=== PATIENT | female | born 1970 | race Caucasian/White ===

== ENCOUNTER 2018-06-13 09:56 | Emergency (ER) | payer OTHER ==
[~2018-06-13] VITALS: Ht 152.4 cm; Wt 40.8 kg
[~2018-06-13 09:56] MED LIST: CEFP200 PO; LEVSOD75 PO; Percocet 5-3251 EACH PO; Pyridium200 MG PO; Zofran Odt4 MG SL
[2018-06-13 10:23] LABS: Source, Urine Clean Catch
[2018-06-13 10:29] LABS: Bilirubin, Urine Neg (Neg); Blood, Urine 2+ (Neg); Glucose Qualitative, Urine Neg (Neg); Ketones, Urine Neg (Neg); Leukocyte Esterase, Urine 3+ (Neg); Nitrite, Urine Neg (Neg); Protein, Urine 1+ (Neg); Urobilinogen, Urine NORM (Normal)
[2018-06-13] MEDS ORDERED: CEFP200 PO (10:35)
[2018-06-13] MEDS ORDERED: Norco 5-325 Ta1 EACH PO (10:35)
[2018-06-13] MEDS ORDERED: ONDA4ODT MM (10:35)
[2018-06-13 10:52] LABS: Appearance, Urine Hazy (Clear); Bacteria Few /hpf; Color, Urine Yellow (P-Yellow); Squamous Epithelial Cells Few /hpf (Few); White Blood Cells, Urine 50-100 /hpf (0-5)
== END 2018-06-13 10:51 | disposition home or self-care (01) ==
LOC: ER 09:56
PROVIDERS: Physician Assistant
DX: N39.0 Urinary tract infection, site not specified (principal); Z88.2 Allergy status to sulfonamides; Z88.8 Allergy status to other drugs, medicaments and biological substances; Z79.899 Other long term (current) drug therapy; E03.9 Hypothyroidism, unspecified; F17.210 Nicotine dependence, cigarettes, uncomplicated
CPT/HCPCS: 81001; 87077; 87086; 87186; 99283

== ENCOUNTER → 2018-07-10 | Outpatient (CLI) | payer OTHER ==
[~2018-07-10] MED LIST changes: +Norco 5-325 Ta1 EACH PO; +ONDA4ODT MM
== END ==
LOC: LAB SHORT 14:38 → LAB 14:38
DX: N89.8 Other specified noninflammatory disorders of vagina (principal)
CPT/HCPCS: 87070; 87205

== ENCOUNTER → 2018-08-21 | Outpatient (CLI) | payer OTHER | LOC: LAB UCHC 16:34 → LAB SHORT 16:34 | DX: N89.9 Noninflammatory disorder of vagina, unspecified (principal); R30.0 Dysuria | CPT/HCPCS: 87077; 87086; 87186 ==

== ENCOUNTER → 2018-09-04 | Outpatient (CLI) | payer OTHER ==
[~2018-09-04] MED LIST changes: +ACET325 PO; +CIPR500 PO; +LEVSOD100 PO; -LEVSOD75 PO; +Macrodantin50 MG PO; +VENL37.5ER PO
== END ==
LOC: LAB 15:15 → LAB SHORT 15:15
DX: N89.8 Other specified noninflammatory disorders of vagina (principal); R30.0 Dysuria
CPT/HCPCS: 87086

== ENCOUNTER 2018-09-06 08:41 | Observation (INO) | payer OTHER ==
[~2018-09-06] VITALS: Ht 154.9 cm; Wt 44.9 kg
[~2018-09-06 08:41] MED LIST changes: -ACET325 PO; -CIPR500 PO; -Macrodantin50 MG PO; -VENL37.5ER PO
[2018-09-06 09:12] LABS: BASOPHILS ABSOLUTE AUTO 0.04 K/mm3 (0.00-0.23); BASOPHILS PERCENT AUTO 0 % (0-2); EOSINOPHILS ABSOLUTE AUTO 0.03 K/mm3 (0.00-0.68); EOSINOPHILS PERCENT AUTO 0 % (0-6); Hematocrit 44.8 % (33.0-51.0); Hemoglobin 14.8 g/dL (11.5-16.0); IMMATURE GRAN ABSOLUTE AUTO 0.08 K/mm3 (0.00-0.10); IMMATURE GRAN PERCENT AUTO 0 % (0-1); LYMPHOCYTES ABSOLUTE AUTO 0.51 K/mm3 (0.84-5.20); LYMPHOCYTES PERCENT AUTO 3 % (21-46); MONOCYTES ABSOLUTE AUTO 0.81 K/mm3 (0.16-1.47); MONOCYTES PERCENT AUTO 4 % (4-13); Mean Corpuscular HGB 29.5 pg (26.0-34.0); Mean Corpuscular Volume 89 fL (80-100); Mean Platelet Volume 9.9 fL (9.1-12.4); NEUTROPHILS ABSOLUTE AUTO 19.12 K/mm3 (1.96-9.15); NEUTROPHILS PERCENT AUTO 93 % (41-73); Platelet Count 274 K/mm3 (150-400); RDW Coefficient Variation 11.9 % (11.7-14.2); RDW Standard Deviation 38.8 fL (35.1-46.3); Red Blood Cell Count 5.01 M/mm3 (3.80-5.20); White Blood Cell Count 20.59 K/mm3 (4.00-11.30)
[2018-09-06 09:33] LABS: Alanine Aminotransfer (ALT/SGP 59 U/L (12-78); Albumin, Blood 4.2 g/dL (3.4-5.0); Alk Phos 94 U/L (50-136); Anion Gap 12 mmol/L (6-16); Aspartate Aminotrans (AST/SGOT 47 U/L (12-37); Bilirubin, Total 0.9 mg/dL (0.1-1.0); Blood Urea Nitrogen 21 mg/dL (8-24); Bun/Creatinine Ratio 38.7 (12.0-20.0); CO2, Blood 19 mmol/L (21-32); Calcium, Blood 9.9 mg/dL (8.5-10.1); Chloride, Blood 105 mmol/L (98-108); Creatinine, Blood 0.54 mg/dL (0.40-1.00); Globulin, Blood 4.1 g/dL (2.2-4.0); Glomerular Filtration Rate >60 (60-); Glucose, Blood 178 mg/dL (70-99); Potassium, Blood 4.1 mmol/L (3.5-5.5); Sodium, Blood 136 mmol/L (136-145); Total Protein, Blood 8.3 g/dL (6.4-8.2)
[2018-09-06 11:11] LABS: Source, Urine Clean Catch
[2018-09-06 11:27] LABS: Bilirubin, Urine Neg (Neg); Blood, Urine 3+ (Neg); Glucose Qualitative, Urine Neg (Neg); Ketones, Urine 3+ (Neg); Leukocyte Esterase, Urine 2+ (Neg); Nitrite, Urine Neg (Neg); Protein, Urine 2+ (Neg); Urobilinogen, Urine 1+ (Normal)
[2018-09-06 11:34] LABS: Appearance, Urine Hazy (Clear); Color, Urine Yellow (P-Yellow)
[2018-09-06 11:41] LABS: Bacteria Many /hpf; Mucus Heavy (0-Heavy); Squamous Epithelial Cells Few /hpf (Few); White Blood Cells, Urine 25-50 /hpf (0-5)
[2018-09-06 11:42] LABS: Red Blood Cells, Urine 25-50 /hpf (0-2)
[2018-09-06] MEDS ORDERED: VENL37.5ER PO (13:15)
--- NOTE | 2018-09-06 14:34 | NUR ---
NOTIFIED DR. STOKES PT'S BP IS 89/45 AND PT IS ASYMPTOMATIC. DR. STOKES SAID TO ORDER A BOLUS OF LR'S. NO OTHER NEW ORDERS AT THIS TIME.
--- NOTE | 2018-09-06 15:10 | NUR ---
PT REPORTS ALLERGY TO LATEX. VERIFIED WITH PHARMACY FLU VACCINE DOES NOT CONTAIN LATEX AND IT IS SAFE FOR PT TO RECIEVE.
--- NOTE | 2018-09-06 18:42 | NUR ---
SHIFT SUMMARY- PT NEW ADMIT THIS AFTERNOON. PT DENIES PAIN. DENIES N/V. DENIES SOB. RESP E/U ON RA. NOTIFIED OF PT'S BP OF 89/45. ORDERED BOLUS OF LR. BP 111/71 AFTER BOLUS. PT C/O BURNING DURING URINATION AND URGENCY. MEDS GIVEN PER EMAR. SBA TO THE BATHROOM. NO OTHER SIGNIFICANT CHANGES THIS SHIFT.
[2018-09-07 05:06] LABS: Hematocrit 33.6 % (33.0-51.0); Hemoglobin 10.8 g/dL (11.5-16.0); Mean Corpuscular HGB 28.8 pg (26.0-34.0); Mean Corpuscular HGB Conc 32.1 g/dL (31.5-36.5); Mean Corpuscular Volume 90 fL (80-100); Mean Platelet Volume 9.9 fL (9.1-12.4); Platelet Count 171 K/mm3 (150-400); RDW Coefficient Variation 12.1 % (11.7-14.2); RDW Standard Deviation 39.8 fL (35.1-46.3); Red Blood Cell Count 3.75 M/mm3 (3.80-5.20); White Blood Cell Count 6.36 K/mm3 (4.00-11.30)
--- NOTE | 2018-09-07 06:20 | NUR ---
SHIFT SUMMARY PT HAS SLEPT ALL SHIFT. PT HAD NO COMPLAINTS NOTED. NO DIARRHEA NOTED. STILL AWAITING STOOL SAMPLE TO SEND. PT CURRENTLY SLEEPING AND BREATHING EASY. CALL LIGHT IN REACH
[2018-09-07] MEDS ORDERED: Pyridium200 MG PO (14:13)
[2018-09-07] MEDS ORDERED: ACET325 PO (14:13)
[2018-09-07] MEDS ORDERED: CIPR500 PO (14:14)
[2018-09-07] MEDS ORDERED: Macrodantin50 MG PO (14:21)
--- NOTE | 2018-09-07 14:25 | NUR ---
SPOKE WITH DR. DIANA ABOUT D/C MEDICATIONS. V/O TO D/C MACROBID AND CHANGE TO NITROFURANTOIN MACROCRYTAL CAP 50MG DAILY TO BE STARTED ONCE CIPRO IS D/C'D. CHANGE CALLED TO [facility] IN [place].
== END 2018-09-07 15:15 | disposition home or self-care (01) ==
LOC: ER 08:41 → MEDS 08:52
PROVIDERS: Emergency Medicine; ADMIT Internal Medicine
DX: N10 Acute pyelonephritis (principal); R65.10 Systemic inflammatory response syndrome (SIRS) of non-infectious origin without acute organ dysfunction; R19.7 Diarrhea, unspecified; E03.9 Hypothyroidism, unspecified; J45.909 Unspecified asthma, uncomplicated; F17.200 Nicotine dependence, unspecified, uncomplicated; Z88.8 Allergy status to other drugs, medicaments and biological substances; Z88.2 Allergy status to sulfonamides; Z79.899 Other long term (current) drug therapy
CPT/HCPCS: 36415; 71045; 74176; 80053; 81001; 83605; 85025; 85027; 87077; 87086; 87186; 90686; 93005; 93010; 96361; 96365; 96366; 96372; 96375; 99285-25; G0008; G0378; J0696; J0780; J1170; J1650; J7030; J7120